=== PATIENT | female | born 2000 | race African-American/Black ===

== ENCOUNTER 2022-10-07 00:28 | Emergency (ER) | payer BC ==
[~2022-10-07] VITALS: Ht 172.7 cm; Wt 125.6 kg
[2022-10-07] MEDS ORDERED: CEFDINIR300 MG PO ×2 (01:15→01:22)
[2022-10-07] MEDS ORDERED: IBUPROFEN600 MG PO ×2 (01:15→01:22)
[2022-10-07 01:32] VITALS: BP 145/98; PULSE 86; RESP 18; TEMP 98.4; O2SAT 97
== END 2022-10-07 01:32 | disposition home or self-care (01) ==
LOC: FSED 00:31
DX: J02.0 Streptococcal pharyngitis (principal)
CPT/HCPCS: 99282